=== PATIENT | female | born 1990 | race African-American/Black ===

== ENCOUNTER 2020-07-31 11:35 | Inpatient (IN) ==
[2020-07-31] MEDS ORDERED: Furosemide 40 MG/4 ML VIAL IVP ONE (11:51)
[2020-07-31] MEDS ORDERED: Nitroglycerin 0.4 MG TAB.SUBL SL STA (11:52)
[2020-07-31] MEDS ORDERED: Ondansetron 4 MG/2 ML VIAL IVP ONE (11:57)
[2020-07-31 12:04] LABS: Basophils # 0.1 K/mcL (0.0-0.2); Basophils % 0.5 %; Eosinophils # 0.1 K/mcL (0.0-0.6); Eosinophils % 0.9 %; Hematocrit 35.5 % (35.3-44.9); Immature Granulocytes % 0.6 % (0-4); Lymphocytes # 1.9 K/mcL (0.6-4.6); Mean Corpuscular Hemoglobin 28.6 pg (28.0-33.3); Mean Corpuscular Volume 92.2 fL (83.0-100.0); Mean Platelet Volume 12.8 fL (9.4-12.4); Monocytes # 0.5 K/mcL (0.0-1.3); Monocytes % 4.7 %; Neutrophils # 7.1 K/mcL (1.6-8.9); Platelet Count 205 K/mcL (140-400); Red Blood Count 3.85 M/mcL (3.82-4.97); Red Cell Distribution Width 16.9 % (11.5-14.5); Segmented Neutrophils % 73.3 %; White Blood Count 9.6 K/mcL (4.3-11.1)
[2020-07-31] MEDS ORDERED: *HR* FentaNYL (PF) 100 MCG/2 ML VIAL IVP STA (12:05)
[2020-07-31 12:26] LABS: BUN/Creatinine Ratio 7 (6-26); Blood Urea Nitrogen 69 mg/dL (6-20); Calcium 9.1 mg/dL (8.6-10.3); Carbon Dioxide 18 mEq/L (23-29); Chloride 104 mEq/L (98-107); Glucose 122 mg/dL (70-105); Osmolality,Calculated 309 (280-300); Potassium 5.2 mEq/L (3.5-5.1); Sodium 139 mEq/L (136-145); eGFR For African Americans 6 (> 60); eGFR For Non-African Americans 5 (> 60)
[2020-07-31 12:27] LABS: Troponin I < 0.03 ng/mL (< 0.04)
[2020-07-31] MEDS ORDERED: Furosemide 20 MG/2 ML VIAL IVP ONE (13:13)
[2020-07-31] MEDS ORDERED: *HR* Heparin 10,000 UNIT/10 ML VIAL IV PRN (13:30)
[2020-07-31] MEDS ORDERED: 0.9 % Sodium Chloride 250 ML IVC PRN (13:30)
[2020-07-31] MEDS ORDERED: 0.9 % Sodium Chloride 1,000 ML PRIME SCH (13:30)
[2020-07-31 14:14] LABS: Hepatitis B Surface Antibody 5.25 mIU/mL
[2020-07-31 14:24] LABS: Hepatitis B Surface Antigen Nonreactive (Nonreactive)
[2020-07-31] MEDS ORDERED: Morphine Sulfate 2 MG/ML SYRINGE IVP ONE (14:59)
[2020-07-31] MEDS ORDERED: Naloxone 0.4 MG/ML INJ IVP PRN ×2 (15:01→17:46)
[2020-07-31] MEDS ORDERED: Perflutren Lipid Microsphere 1.3 ML in 0.9 % Sodium Chloride 8.7 ML IVP PRN (17:48)
[2020-07-31] MEDS: *HR* Heparin 5,000 UNIT/ML VIAL SQ SCH (18:51)
[2020-07-31] MEDS ORDERED: *HR* Dextrose 50 % in Water (Vial) 50 ML VIAL IVP PRN (19:59)
[2020-07-31] MEDS ORDERED: *HR* Dextrose 50 % in Water (Vial) 50 ML VIAL ONE (20:03)
[2020-07-31] MEDS: *HR* HYDROmorphone 2 MG/ML SYRINGE SQ PRN (20:09)
[2020-07-31] MEDS: Ondansetron 4 MG/2 ML VIAL IVP PRN (21:40)
[2020-07-31] MEDS ORDERED: *HR* Labetalol 20 MG/4 ML SYRINGE IVP ONE (22:52)
[2020-07-31 23:18] LABS: Adenovirus Not Detected (Not Detect); Bordetella Pertussis Not Detected (Not Detect); Chlamydophila pneumoniae Not Detected (Not Detect); Coronavirus 229E Not Detected (Not Detect); Coronavirus HKU1 Not Detected (Not Detect); Coronavirus NL63 Not Detected (Not Detect); Coronavirus OC43 Not Detected (Not Detect); Human Metapneumovirus Not Detected (Not Detect); Human Rhinovirus/Enterovirus Not Detected (Not Detect); Influenza A Subtype 2009 H1 Not Detected (Not Detect); Influenza B Not Detected (Not Detect); Mycoplasma pneumoniae Not Detected (Not Detect); Parainfluenza Virus 1 Not Detected (Not Detect); Parainfluenza Virus 2 Not Detected (Not Detect); Parainfluenza Virus 3 Not Detected (Not Detect); Parainfluenza Virus 4 Not Detected (Not Detect); Respiratory Syncytial Virus Not Detected (Not Detect); SARS-CoV-2 Not Detected (Not Detect)
[2020-08-01] MEDS: *HR* HYDROmorphone 2 MG/ML SYRINGE SQ PRN ×5 (00:12→20:03)
[2020-08-01] MEDS ORDERED: Dextrose Gel 15 GM/37.5 ML TUBE PO PRN (03:02)
[2020-08-01] MEDS ORDERED: *HR* Dextrose 50 % in Water (Vial) 50 ML VIAL IVP PRN (03:02)
[2020-08-01] MEDS ORDERED: D5% in Water 1,000 ML IVC PRN (03:02)
[2020-08-01] MEDS: Ondansetron 4 MG/2 ML VIAL IVP PRN (03:31)
[2020-08-01 06:01] LABS: Basophils % 0.2 %; Eosinophils % 0.2 %; Hematocrit 32.6 % (35.3-44.9); Hemoglobin 10.2 g/dL (11.5-15.4); Immature Granulocytes % 0.4 % (0-4); Lymphocytes # 1.3 K/mcL (0.6-4.6); Lymphocytes % 10.6 %; Mean Corpuscular HGB Conc 31.3 g/dL (31.6-35.5); Mean Corpuscular Hemoglobin 28.2 pg (28.0-33.3); Mean Corpuscular Volume 90.1 fL (83.0-100.0); Mean Platelet Volume 11.6 fL (9.4-12.4); Monocytes # 0.6 K/mcL (0.0-1.3); Monocytes % 4.7 %; Neutrophils # 10.3 K/mcL (1.6-8.9); Platelet Count 141 K/mcL (140-400); Red Blood Count 3.62 M/mcL (3.82-4.97); Red Cell Distribution Width 16.7 % (11.5-14.5); Segmented Neutrophils % 83.9 %; White Blood Count 12.3 K/mcL (4.3-11.1)
[2020-08-01] MEDS: *HR* Heparin 5,000 UNIT/ML VIAL SQ SCH ×2 (06:09→16:44)
[2020-08-01 06:38] LABS: Calcium 9.8 mg/dL (8.6-10.3); Phosphorous 6.2 mg/dL (2.7-4.5); Potassium 3.7 mEq/L (3.5-5.1)
[2020-08-01] MEDS ORDERED: 0.9 % Sodium Chloride 250 ML IVC PRN (07:18)
[2020-08-01] MEDS ORDERED: *HR* Heparin 10,000 UNIT/10 ML VIAL IV PRN (07:18)
[2020-08-01] MEDS ORDERED: 0.9 % Sodium Chloride 1,000 ML PRIME SCH (07:30)
[2020-08-01] MEDS ORDERED: Prochlorperazine 10 MG/2 ML VIAL IVP PRN (08:42)
[2020-08-01] MEDS ORDERED: *HR* Promethazine 25 MG/ML VIAL IM PRN (10:20)
[2020-08-01] MEDS ORDERED: *HR* Metoprolol 5 MG/5 ML VIAL IVP ONE (12:54)
[2020-08-01] MEDS: cloNIDine HCL 0.1 MG TABLET PO SCH ×2 (13:49→20:03)
[2020-08-01] MEDS: hydrALAZINE 25 MG TABLET PO SCH ×2 (14:32→21:59)
[2020-08-01] MEDS: NIFEdipine XL (24 HR) 60 MG TAB.ER.24 PO SCH (20:03)
[2020-08-02] MEDS: *HR* HYDROmorphone 2 MG/ML SYRINGE SQ PRN ×2 (03:40→08:47)
[2020-08-02 04:21] LABS: Basophils % 0.4 %; Eosinophils # 0.1 K/mcL (0.0-0.6); Eosinophils % 1.2 %; Hematocrit 34.4 % (35.3-44.9); Hemoglobin 10.6 g/dL (11.5-15.4); Immature Granulocytes % 0.4 % (0-4); Immature Platelets 10.7 % (1.1-6.1); Lymphocytes # 1.3 K/mcL (0.6-4.6); Lymphocytes % 24.4 %; Mean Corpuscular HGB Conc 30.8 g/dL (31.6-35.5); Mean Corpuscular Hemoglobin 28.2 pg (28.0-33.3); Mean Corpuscular Volume 91.5 fL (83.0-100.0); Mean Platelet Volume 13.6 fL (9.4-12.4); Monocytes # 0.5 K/mcL (0.0-1.3); Monocytes % 9.4 %; Neutrophils # 3.3 K/mcL (1.6-8.9); Platelet Count 120 K/mcL (140-400); Red Blood Count 3.76 M/mcL (3.82-4.97); Red Cell Distribution Width 16.5 % (11.5-14.5); Segmented Neutrophils % 64.2 %; White Blood Count 5.2 K/mcL (4.3-11.1)
[2020-08-02 04:29] LABS: Calcium 10.1 mg/dL (8.6-10.3); Potassium 3.9 mEq/L (3.5-5.1)
[2020-08-02] MEDS: *HR* Heparin 5,000 UNIT/ML VIAL SQ SCH ×2 (05:11→16:20)
[2020-08-02] MEDS: hydrALAZINE 25 MG TABLET PO SCH ×3 (05:12→21:05)
[2020-08-02] MEDS: NIFEdipine XL (24 HR) 60 MG TAB.ER.24 PO SCH (07:30)
[2020-08-02] MEDS: cloNIDine HCL 0.1 MG TABLET PO SCH ×3 (07:31→21:03)
[2020-08-02] MEDS ORDERED: predniSONE 5 MG TABLET PO SCH (09:00)
[2020-08-02] MEDS ORDERED: predniSONE 20 MG TABLET PO SCH (13:30)
[2020-08-02] MEDS ORDERED: *HR* HYDROmorphone 2 MG/ML SYRINGE SQ PRN (15:15)
[2020-08-02] MEDS ORDERED: Dextrose Gel 15 GM/37.5 ML TUBE PO PRN (15:15)
[2020-08-02] MEDS ORDERED: 0.9 % Sodium Chloride 1,000 ML PRIME SCH (15:15)
[2020-08-02] MEDS ORDERED: Naloxone 0.4 MG/ML INJ IVP PRN (15:15)
[2020-08-02] MEDS ORDERED: D5% in Water 1,000 ML IVC PRN (15:15)
[2020-08-02] MEDS ORDERED: Ondansetron 4 MG/2 ML VIAL IVP PRN (15:15)
[2020-08-02] MEDS ORDERED: 0.9 % Sodium Chloride 250 ML IVC PRN (15:15)
[2020-08-02] MEDS ORDERED: *HR* Promethazine 25 MG/ML VIAL IM PRN (15:15)
[2020-08-02] MEDS ORDERED: *HR* Dextrose 50 % in Water (Vial) 50 ML VIAL IVP PRN (15:15)
[2020-08-02] MEDS ORDERED: Prochlorperazine 10 MG/2 ML VIAL IVP PRN (15:15)
[2020-08-02] MEDS ORDERED: Perflutren Lipid Microsphere 1.3 ML in 0.9 % Sodium Chloride 8.7 ML IVP PRN (15:15)
[2020-08-02] MEDS ORDERED: *HR* HYDROmorphone (PF) 1 MG/ML SYRINGE SQ PRN (16:30)
[2020-08-02] MEDS ORDERED: NIFEdipine XL (24 HR) 60 MG TAB.ER.24 PO SCH (21:00)
[2020-08-03] MEDS: hydrALAZINE 25 MG TABLET PO SCH (04:30)
[2020-08-03] MEDS: *HR* Heparin 5,000 UNIT/ML VIAL SQ SCH (06:00)
[2020-08-03 06:56] LABS: Hemoglobin 10.4 g/dL (11.5-15.4); Immature Granulocytes % 0.4 % (0-4); Mean Corpuscular Hemoglobin 28.2 pg (28.0-33.3); Red Blood Count 3.69 M/mcL (3.82-4.97)
[2020-08-03 06:58] LABS: Immature Platelets 9.9 % (1.1-6.1); Lymphocytes # 0.4 K/mcL (0.6-4.6); Mean Corpuscular HGB Conc 30.6 g/dL (31.6-35.5); Mean Corpuscular Volume 92.1 fL (83.0-100.0); Mean Platelet Volume 12.8 fL (9.4-12.4); Monocytes # 0.2 K/mcL (0.0-1.3); Monocytes % 6.2 %; Neutrophils # 2.1 K/mcL (1.6-8.9); Platelet Count 130 K/mcL (140-400); Red Cell Distribution Width 15.9 % (11.5-14.5); Segmented Neutrophils % 78.4 %; White Blood Count 2.7 K/mcL (4.3-11.1)
[2020-08-03 07:31] LABS: Calcium 10.2 mg/dL (8.6-10.3); Potassium 4.6 mEq/L (3.5-5.1)
[2020-08-03] MEDS ORDERED: *HR* Heparin 10,000 UNIT/10 ML VIAL IV PRN (07:44)
[2020-08-03] MEDS ORDERED: 0.9 % Sodium Chloride 250 ML IVC PRN (07:44)
[2020-08-03] MEDS: cloNIDine HCL 0.1 MG TABLET PO SCH (08:49)
[2020-08-03] MEDS ORDERED: predniSONE 20 MG TABLET PO SCH (09:00)
[2020-08-03] MEDS ORDERED: Acetaminophen 325 MG TABLET PO ONE (09:10)
[2020-08-03 13:52] VITALS: BP 160/104
== END 2020-08-03 14:09 | disposition home or self-care (01) | DRG 189 ==
LOC: EMEROOARM 11:35 → 2NNU 11:35 → SUATTDRO 08-01 19:17 → 2ANU 08-02 15:06
PROVIDERS: ADMIT Internal Medicine; ATTEND Internal Medicine